=== PATIENT | female | born 1980 | race Hispanic/Latino ===

== ENCOUNTER 2018-06-22 08:55 | Emergency (ER) | payer MEDICAID ==
[2018-06-22 09:12] VITALS: TEMP 98.9
--- NOTE | 2018-06-22 09:57 | ED PDOC ---
Arrival/HPI - General Chief Complaint: Back Pain Historian: Patient - History of Present Illness Narrative History of Present Illness (Text): 06/22/18 09:49 37 y/o female, no significant pmh, nkda, c/o rt. lower back pain x 1 day with no fall or trauma. Aching pain, aggravated by movement, sharp pain, stabbing sensation, no numbness or tingling, no urinary or bowel incontinence or retention, no other medical or psychological complaints. Past Medical History - Provider Review Nursing Documentation Reviewed: Yes - Psychiatric Hx Psychophysiologic Disorder: No Hx Substance Use: No - Surgical History Hx Section: Yes Family/Social History - Physician Review Nursing Documentation Reviewed: Yes Family/Social History: Unknown Family HX Smoking Status: Current Some Days Smoker Hx Alcohol Use: Yes Frequency of alcohol use: Socially Hx Substance Use: No Allergies/Home Meds Allergies/Adverse Reactions: Allergies No Known Allergies Allergy (Verified 06/22/18 09:08) Review of Systems - Review of Systems Constitutional: absent: Fatigue, Fevers Eyes: absent: Vision Changes ENT: absent: Hearing Changes Respiratory: absent: SOB, Cough Cardiovascular: absent: Chest Pain Gastrointestinal: absent: Abdominal Pain, Diarrhea, Nausea, Vomiting Musculoskeletal: Back Pain, Myalgias. absent: Arthralgias, Neck Pain Skin: absent: Rash, Pruritis Neurological: absent: Headache Psychiatric: absent: Anxiety, Depression, Suicidal Ideation Physical Exam Vital Signs Reviewed: Yes Vital Signs Temp Pulse Resp BP Pulse Ox 06/22/18 09:09 98.9 F 125 H 16 119/81 97 Temperature: Afebrile Blood Pressure: Normal Pulse: Regular Respiratory Rate: Normal Appearance: Positive for: Well-Appearing, Non-Toxic Pain Distress: Moderate Mental Status: Positive for: Alert and Oriented X 3 - Systems Exam Head: Present: Atraumatic, Normocephalic Pupils: Present: PERRL Extroacular Muscles: Present: EOMI Conjunctiva: Present: Normal Mouth: Present: Moist Mucous Membranes Neck: Present: Normal Range of Motion Respiratory/Chest: Present: Clear to Auscultation, Good Air Exchange. No: Respiratory Distress, Accessory Muscle Use Cardiovascular: Present: Regular Rate and Rhythm, Normal S1, S2. No: Murmurs Abdomen: No: Tenderness, Distention, Peritoneal Signs Back: Present: Normal Inspection, Paraspinal Tenderness (LS spine: +ttp and spasm noted on the rt. paraspinal region with mild rt. cva tenderness, FROM withot limitation, sensation intact, motor 5/5, no saddling gait, no rash or vesicular lesions. ). No: CVA Tenderness, Midline Tenderness Upper Extremity: Present: Normal Inspection, Normal ROM, NORMAL PULSES, Neuro vascularly Intact, Capillary Refill < 2s. No: Cyanosis, Edema, Deformity Lower Extremity: Present: Normal Inspection, NORMAL PULSES, Normal ROM, Neurovascularly Intact, Capillary Refill < 2 s. No: Edema, Tenderness, Swelling, Deformity Neurological: Present: GCS=15, CN II-XII Intact, Speech Normal Skin: Present: Warm, Dry, Normal Color. No: Rashes Psychiatric: Present: Alert, Oriented x 3, Normal Insight, Normal Concentration Medical Decision Making ED Course and Treatment: 06/22/18 10:01 -labs -ct abd/pelvis -ivf/toradol/pepcid/zofran/valium -observe and reassess 06/22/18 01:30 -Urine hcg is negative -labs show wbc 20.6 with left shift, mg 1.6 (mgsul IV ordered) -UA show +UTI -Blood cultures ordered -CT abdomen and pelvis Obstructing 9 mm mid right ureteral calculus. Trace right perinephric fluid. Mild right hydroureteronephrosis. Nonobstructing left lower pole renal calculus. Additional minor findings as above. -Chest xray ER wet read show no active disease -Pt. is po intolerance, will need IVF and rocephine which I ordered for her. She remains tachycardia at rest. -She will need admission. I explained all labs/radiology results to her, recommend admission and urologist emergent consult. Pt. stated that she has to leave as she has 5 kids at home, will come back to the ER this evening which I don't recommend that as this is delayed the care. 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 Pt stated that she feels better now, eating ice chips, refused me to wait and call specialists for consult. AMA ER The patient refuses to stay in the Emergency Room (ER) to continue the care and wishes to leave the emergency department against my medical advice. Patient was told that staying in the ER is necessary and a full explanation of the reasons why was given, and understood by the patient with alert and oriented x4. The risk of leaving were explained in laymans term and including but not limited to renal abscess, peritonitis, ureter or renal perforation, sepsis, organ or organs failure, sepsis, peritonitis, pain, worsening of condition, permanent disability and from an undiagnosed or untreated condition. The patient accepts these risks, and is in my judgment is competent and capable of understanding the clinical situation and explanation of the risk of leaving. The patient is able to verbally repeated me back the above explained risks and benefits back to me, and verbally expressed understanding. Patient was given the opportunity to ask questions and change mind. The patient was instructed regarding the best care for the present symptoms, and to follow up as soon as possible with the primary care doctor including specialist or return to the emergency department at any time for continuing care. You were recommend to be admitted to the hospital for IV antibiotic and urologist/infectious disease to see you but you refused. You are given keflex/flomax/percocet for pain, please come to the ER or go to the nearest ER for continuity of care. You are given urologist/infectious disease to see as well. - RAD Interpretation Radiology Orders: Chest xray: 06/22/2018 HISTORY: medical clearance COMPARISON: No prior. FINDINGS: LUNGS: No active pulmonary disease. PLEURA: No significant pleural effusion identified, no pneumothorax apparent. CARDIOVASCULAR: No aortic atherosclerotic calcification present. Normal cardiac size. No pulmonary vascular congestion. OSSEOUS STRUCTURES: No significant abnormalities. VISUALIZED UPPER ABDOMEN: Normal. OTHER FINDINGS: None. IMPRESSION: No active disease. CT abdomen and pelvis: Date of service: 06/22/2018 PROCEDURE: CT Abdomen and Pelvis with contrast HISTORY: rt. sided abdominal pain COMPARISON: None. TECHNIQUE: Contrast dose: 150 mL Omnipaque Radiation dose: Total exam DLP = 350 mGy-cm. This CT exam was performed using one or more of the following dose reduction techniques: Automated exposure control, adjustment of the mA and/or kV according to patient size, and/or use of iterative reconstruction technique. FINDINGS: LOWER THORAX: Unremarkable. LIVER: Mild hepatomegaly. Smooth contour. No mass. No biliary dilatation. GALLBLADDER AND BILE DUCTS: Contracted gallbladder filled with calculi. No pericholecystic fluid. PANCREAS: Unremarkable. No gross lesion or ductal dilatation. SPLEEN: Unremarkable. ADRENALS: Unremarkable. No mass. KIDNEYS AND URETERS: Right hydroureteronephrosis. Obstructing mid right ureteral calculus, 9 mm greatest dimension as measured off the coronal images. Trace right perinephric fluid. No right renal calculus. Nonobstructing 5 mm left lower pole calculus. VASCULATURE: Unremarkable. No aortic aneurysm. No aortic atherosclerotic calcification or mural plaque present. BOWEL: Unremarkable. No obstruction. No gross mural thickening. APPENDIX: Not identified. No secondary findings to suggest appendicitis. PERITONEUM: Unremarkable. No free fluid. No free air. LYMPH NODES: Unremarkable. No enlarged lymph nodes. BLADDER: Unremarkable. REPRODUCTIVE: Unremarkable uterus. Bilateral ovarian cysts, 2.2 cm on the right side and 1.4 cm on the left side. Presumed physiologic. BONES: No acute fracture. OTHER FINDINGS: None. IMPRESSION: Obstructing 9 mm mid right ureteral calculus. Trace right perinephric fluid. Mild right hydroureteronephrosis. Nonobstructing left lower pole renal calculus. Additional minor findings as above. [employer]: Radiologist - PA / SLUDGE CONTROL OPERATOR / Resident Statement MD/DO has reviewed & agrees with the documentation as recorded. Disposition/Present on Arrival - Present on Arrival Any Indicators Present on Arrival: No History of DVT/PE: No History of Uncontrolled Diabetes: No Urinary Catheter: No History of Decub. Ulcer: No History Surgical Site Infection Following: None - Disposition Have Diagnosis and Disposition been Completed?: Yes Diagnosis: Leukocytosis, Pyelonephritis, Hypomagnesemia, Hydronephrosis with renal and ureteral calculous obstruction, Noncompliance Disposition: AGAINST MEDICAL ADVICE Disposition Time: 13:32 Patient Problems: Current Active Problems Problem Status Onset Leukocytosis Acute Pyelonephritis Acute Hypomagnesemia Acute Hydronephrosis with renal and ureteral calculous obstruction Acute Noncompliance Acute Condition: STABLE Additional Instructions: You were recommend to be admitted to the hospital for IV antibiotic and urologist/infectious disease to see you but you refused. You are given keflex/flomax/percocet for pain, please come to the ER or go to the nearest ER for continuity of care. You are given urologist/infectious disease to see as well. Prescriptions: Cephalexin [Keflex] 500 mg PO QID #28 capsule oxyCODONE/Acetaminophen [Percocet 5/325 mg Tab] 1 tab PO QID #6 tab Tamsulosin [Flomax] 0.4 mg PO DAILY #7 cap Referrals: PCP,NO [Primary Care Provider] - Follow up with primary Riaz Paniagua MD [Staff Provider] - Follow up with primary Rl Sheehan MD [Staff Provider] - Follow up with primary [facility] [place] - Follow up with primary Forms: [email or web address] (Welsh), WORK NOTE
[2018-06-22] MEDS ORDERED: Sodium Chloride 0.9% 1,000 ML IV STA ×2 (09:58→11:45)
[2018-06-22 10:51] LABS: URINE BILIRUBIN NEGATIVE (NEGATIVE); URINE BLOOD MODERATE (NEGATIVE); URINE GLUCOSE (UA) NEGATIVE (NEGATIVE); URINE LEUKOCYTE ESTERASE SMALL Leu/uL (NEGATIVE); URINE PROTEIN 100 mg/dL (<30 mg/dL); URINE UROBILINOGEN 0.2 E.U./dL (<1 E.U./dL)
[2018-06-22 10:52] LABS: URINE APPEARANCE CLOUDY (CLEAR); URINE COLOR LIGHT YELLOW (YELLOW)
[2018-06-22 10:54] LABS: ALB/GLOB RATIO 1.1 (1.1-1.8); ALBUMIN 4.3 g/dL (3.0-4.8); ALT/SGPT 16 U/L (7-56); AST/SGOT 23 U/L (14-36); BLOOD UREA NITROGEN 9 mg/dL (7-21); CALCIUM 9.3 mg/dL (8.4-10.5); GFR NON-AFRICAN AMERICAN > 60; LIPASE 100 U/L (23-300)
[2018-06-22 10:56] LABS: BASO # 0.02 K/mm3 (0.0-2.0); BASO % 0.1 % (0.0-3.0); EOS # 0.1 (0.0-0.7); EOS % 0.3 % (1.5-5.0); HEMOGLOBIN 10.5 g/dL (12.0-16.0); LYMPH # 1.6 (1.2-3.4); LYMPH % 7.8 % (22.0-35.0); MEAN CELL VOLUME 74.7 fl (80.0-105.0); MEAN CORPUSCULAR HEMOGLOBIN 22.3 pg (25.0-35.0); MEAN CORPUSCULAR HGB CONC 29.9 g/dl (31.0-37.0); MEAN PLATELET VOLUME 8.3 fl (7.0-11.0); MONO # 1.1 (0.1-0.6); MONO % 5.2 % (1.0-6.0); RBC 4.7 10^6/uL (3.5-6.1); RED CELL DISTRIBUTION WIDTH 14.9 % (11.5-14.5); WHITE BLOOD COUNT 20.6 10^3/uL (4.5-11.0)
[2018-06-22 11:10] LABS: URINE BACTERIA LARGE /hpf; URINE RBC TNTC /hpf (0-2); URINE WBC TNTC /hpf (0-6)
[2018-06-22 11:12] VITALS: RESP 18; O2SAT 100
[2018-06-22] MEDS ORDERED: cefTRIAXone 1 gm 1 GM/100 ML BAG IVPB STA (11:48)
[2018-06-22] MEDS ORDERED: Magnesium Sulfate 2 gm/50 ml 2 GM/50 ML BAG IVPB ONE (11:48)
--- NOTE | 2018-06-22 12:53 | CT ---
Date of service: 06/22/2018 PROCEDURE: CT Abdomen and Pelvis with contrast HISTORY: rt. sided abdominal pain COMPARISON: None. TECHNIQUE: Contrast dose: 150 mL Omnipaque Radiation dose: Total exam DLP = 350 mGy-cm. This CT exam was performed using one or more of the following dose reduction techniques: Automated exposure control, adjustment of the mA and/or kV according to patient size, and/or use of iterative reconstruction technique. FINDINGS: LOWER THORAX: Unremarkable. LIVER: Mild hepatomegaly. Smooth contour. No mass. No biliary dilatation. GALLBLADDER AND BILE DUCTS: Contracted gallbladder filled with calculi. No pericholecystic fluid. PANCREAS: Unremarkable. No gross lesion or ductal dilatation. SPLEEN: Unremarkable. ADRENALS: Unremarkable. No mass. KIDNEYS AND URETERS: Right hydroureteronephrosis. Obstructing mid right ureteral calculus, 9 mm greatest dimension as measured off the coronal images. Trace right perinephric fluid. No right renal calculus. Nonobstructing 5 mm left lower pole calculus. VASCULATURE: Unremarkable. No aortic aneurysm. No aortic atherosclerotic calcification or mural plaque present. BOWEL: Unremarkable. No obstruction. No gross mural thickening. APPENDIX: Not identified. No secondary findings to suggest appendicitis. PERITONEUM: Unremarkable. No free fluid. No free air. LYMPH NODES: Unremarkable. No enlarged lymph nodes. BLADDER: Unremarkable. REPRODUCTIVE: Unremarkable uterus. Bilateral ovarian cysts, 2.2 cm on the right side and 1.4 cm on the left side. Presumed physiologic. BONES: No acute fracture. OTHER FINDINGS: None. IMPRESSION: Obstructing 9 mm mid right ureteral calculus. Trace right perinephric fluid. Mild right hydroureteronephrosis. Nonobstructing left lower pole renal calculus. Additional minor findings as above.
--- NOTE | 2018-06-22 13:27 | RAD ---
Date of service: 06/22/2018 HISTORY: medical clearance COMPARISON: No prior. FINDINGS: LUNGS: No active pulmonary disease. PLEURA: No significant pleural effusion identified, no pneumothorax apparent. CARDIOVASCULAR: No aortic atherosclerotic calcification present. Normal cardiac size. No pulmonary vascular congestion. OSSEOUS STRUCTURES: No significant abnormalities. VISUALIZED UPPER ABDOMEN: Normal. OTHER FINDINGS: None. IMPRESSION: No active disease.
[2018-06-22 14:21] VITALS: BP 103/62; PULSE 88
--- NOTE | 2018-06-22 17:51 | CARD ---
APPROVED REPORT Date of service: 06/22/2018 EKG Measurement Heart [id number] <Conclusion> Normal sinus rhythm Normal ECG
== END 2018-06-22 14:33 | disposition left against medical advice (07) ==
LOC: ED 08:55 → MERGE 08:55 → ED 14:33
DX: N13.2 Hydronephrosis with renal and ureteral calculous obstruction (principal); E83.42 Hypomagnesemia; D72.829 Elevated white blood cell count, unspecified; N12 Tubulo-interstitial nephritis, not specified as acute or chronic
CPT/HCPCS: 71045; 74177; 80053; 81001; 81025; 83690; 83735; 85025; 87086; 93005; 96374; 96375; 99284; J0696; J1885; J2405; J7030; Q9967

== ENCOUNTER 2018-08-22 08:14 | Inpatient (IN) | payer MEDICAID ==
[2018-08-22 08:14] VITALS: BMI 37.2
[2018-08-22] MEDS ORDERED: Sodium Chloride 0.9% 1,000 ML IV STA (08:49)
--- NOTE | 2018-08-22 08:55 | ED PDOC ---
Arrival/HPI - General Chief Complaint: GI Problem Time Seen by Provider: 08/22/18 08:18 - History of Present Illness Narrative History of Present Illness (Text): 08/22/18 08:53 A 37 year old female, whose past medical history includes gallstones and kidney stones, presents to the ED complaining of constant, right side flank pain radiating to RLQ of abdomen since yesterday. Patient reports associated nausea and body aches since yesterday, as well as 2 episodes of vomiting this morning. Patient notes pain is unchanged with movement. Patient denies any fevers, chills, headache, dizziness, chest pain, shortness of breath, dyspnea on exertion, cough, diarrhea, neck pain, dysuria, urinary/bowel changes, or any other complaints. Time/Duration: 24 hours (Yesterday) Symptom Onset: Gradual Symptom Course: Unchanged Activities at Onset: Light Context: Home Past Medical History - Provider Review Nursing Documentation Reviewed: Yes - Cardiac Hx Cardiac Disorders: No - Pulmonary Hx Respiratory Disorders: No - Neurological Hx Neurological Disorder: No - HEENT Hx HEENT Disorder: No - Renal Hx Kidney Stones: Yes - Endocrine/Metabolic Hx Endocrine Disorders: No - Hematological/Oncological Hx Blood Disorders: No - Integumentary Hx Dermatological Disorder: No - Musculoskeletal/Rheumatological Hx Musculoskeletal Disorders: No - Gastrointestinal Hx Gall Bladder Disease: Yes (gallstones) - Genitourinary/Gynecological Hx Genitourinary Disorders: No - Psychiatric Hx Psychophysiologic Disorder: No Hx Substance Use: No - Surgical History Hx Section: Yes - Anesthesia Hx Anesthesia: Yes Hx Anesthesia Reactions: No Family/Social History - Physician Review Nursing Documentation Reviewed: Yes Family/Social History: Unknown Family HX Smoking Status: Light Smoker < 10 Cigarettes Daily Hx Alcohol Use: No Hx Substance Use: No Allergies/Home Meds Allergies/Adverse Reactions: Allergies No Known Allergies Allergy (Verified 08/22/18 08:29) Review of Systems - Physician Review All systems were reviewed & negative as marked: Yes - Review of Systems Constitutional: absent: Fevers Eyes: absent: Vision Changes ENT: absent: Hearing Changes Respiratory: absent: SOB, Cough Cardiovascular: absent: Chest Pain Gastrointestinal: Abdominal Pain, Nausea, Vomiting. absent: Stool Changes Genitourinary Female: Other (Right side flank pain) Musculoskeletal: absent: Neck Pain Skin: absent: Rash Neurological: absent: Headache Endocrine: absent: Diaphoresis Hemo/Lymphatic: absent: Adenopathy Psychiatric: absent: Anxiety, Depression Physical Exam Vital Signs Reviewed: Yes Vital Signs Temp Pulse Resp BP Pulse Ox 08/22/18 08:26 99.1 F 92 H 18 120/84 96 Temperature: Afebrile Blood Pressure: Normal Pulse: Regular Respiratory Rate: Normal Appearance: Positive for: Well-Appearing, Non-Toxic, Comfortable Pain Distress: None Mental Status: Positive for: Alert and Oriented X 3 - Systems Exam Head: Present: Atraumatic, Normocephalic Pupils: Present: PERRL Extroacular Muscles: Present: EOMI Conjunctiva: Present: Normal Respiratory/Chest: Present: Clear to Auscultation, Good Air Exchange. No: Respiratory Distress, Accessory Muscle Use Cardiovascular: Present: Regular Rate and Rhythm, Normal S1, S2. No: Murmurs Abdomen: Present: Normal Bowel Sounds. No: Tenderness, Distention Back: Present: Normal Inspection, CVA Tenderness (Right side) Upper Extremity: Present: Normal Inspection Lower Extremity: Present: Normal Inspection Neurological: Present: GCS=15, CN II-XII Intact, Speech Normal, Motor Func Grossly Intact, Normal Sensory Function Skin: Present: Warm, Dry, Normal Color. No: Rashes Psychiatric: Present: Alert, Oriented x 3, Normal Insight, Normal Concentration Medical Decision Making ED Course and Treatment: 08/22/18 09:37 Impression: A 37 year old female who presents to the ED for right side flank pain. Differential Diagnosis included but are not limited to: Kidney Stone vs Pyelonphritis Plan: -- CT Abd/pelvis -- Labs -- IV Fluids -- Urine Culture -- Urine Test -- Urinalysis -- Reassess and disposition Prior Visits: Notes and results from previous visits were reviewed. Progress Notes: 08/22/18 11:23 Case was discussed in detail with Dr. Paniagua, Urology who recommends IV antibiotics and keep the NPO for stent placement. Currently the patient is stable and not ill appearing. Does not appear septic. Treated with Rocephin IV. Patient comfortable with no pain after medications given. Case was discussed with Dr. Escalante who will accept the patient to her service. - RAD Interpretation Radiology Orders: 08/22/18 08:49 ABD & PELVIS W/O PO OR IV CONT [CT] Stat - Medication Orders Current Medication Orders: Sodium Chloride (Sodium Chloride 0.9%) 1,000 mls @ 100 mls/hr IV .Q10H STA Stop: 08/22/18 18:48 Discontinued Medications Ketorolac Tromethamine (Toradol) 30 mg IVP STAT STA Stop: 08/22/18 08:50 Ondansetron HCl (Zofran Inj) 4 mg IVP STAT STA Stop: 08/22/18 08:50 - Scribe Statement The provider has reviewed the documentation as recorded by the Jocelynn Winslow Provider Scribe Attestation: All medical record entries made by the Jocelynn were at my direction and personally dictated by me. I have reviewed the chart and agree that the record accurately reflects my personal performance of the history, physical exam, medical decision making, and the department course for this patient. I have also personally directed, reviewed, and agree with the discharge instructions and disposition. Disposition/Present on Arrival - Present on Arrival Any Indicators Present on Arrival: No History of DVT/PE: No History of Uncontrolled Diabetes: No Urinary Catheter: No History of Decub. Ulcer: No History Surgical Site Infection Following: None - Disposition Have Diagnosis and Disposition been Completed?: Yes Diagnosis: Kidney stone, Pyelonephritis Disposition: HOSPITALIZED Disposition Time: 11:52 Patient Plan: Admission Condition: GUARDED
[2018-08-22 09:28] LABS: URINE BILIRUBIN NEGATIVE (NEGATIVE); URINE BLOOD SMALL (NEGATIVE); URINE GLUCOSE (UA) NEGATIVE (NEGATIVE); URINE LEUKOCYTE ESTERASE LARGE Leu/uL (NEGATIVE); URINE PROTEIN 30 mg/dL (<30 mg/dL); URINE UROBILINOGEN 0.2 E.U./dL (<1 E.U./dL)
[2018-08-22 09:29] LABS: BASO # 0.01 {null, K/mm3} (0.0-2.0); BASO % 0.1 % (0.0-3.0); EOS % 0.1 % (1.5-5.0); HEMOGLOBIN 9.6 g/dL (12.0-16.0); LYMPH # 1.2 (1.2-3.4); LYMPH % 6.7 % (22.0-35.0); MEAN CELL VOLUME 74.2 fl (80.0-105.0); MEAN CORPUSCULAR HEMOGLOBIN 22.7 pg (25.0-35.0); MEAN CORPUSCULAR HGB CONC 30.6 g/dl (31.0-37.0); MEAN PLATELET VOLUME 8.3 fl (7.0-11.0); MONO # 1.2 (0.1-0.6); MONO % 6.8 % (1.0-6.0); RBC 4.23 {null, 10^6/uL} (3.5-6.1); RED CELL DISTRIBUTION WIDTH 16.7 % (11.5-14.5); WHITE BLOOD COUNT 17.2 {null, 10^3/uL} (4.5-11.0)
[2018-08-22 09:33] LABS: URINE APPEARANCE SLIGHT-CLOUDY (CLEAR); URINE COLOR LIGHT YELLOW (YELLOW)
[2018-08-22 09:38] LABS: ALT/SGPT 9 U/L (7-56); AST/SGOT 22 U/L (14-36); BLOOD UREA NITROGEN 12 mg/dL (7-21); GFR NON-AFRICAN AMERICAN > 60; URINE WBC TNTC /hpf (0-6)
[2018-08-22 09:41] LABS: URINE BACTERIA MANY /hpf
[2018-08-22] MEDS ORDERED: cefTRIAXone 1 gm 1 GM/100 ML BAG IVPB STA (09:45)
[2018-08-22 10:09] LABS: VENOUS BLOOD GAS BASE EXCESS -0.1 mmol/L (0.0-2.0); VENOUS BLOOD GAS PO2 57 mm/Hg (30-55); VENOUS BLOOD PH 7.43 (7.32-7.43)
--- NOTE | 2018-08-22 10:46 | CT ---
Date of service: 08/22/2018 PROCEDURE: CT Abdomen and Pelvis without intravenous contrast HISTORY: right flank pain r/o kidney stone h/o ks COMPARISON: CT scan of the abdomen pelvis dated 06/22/2018. TECHNIQUE: Contiguous images were obtained from the domes of the diaphragms to the upper thighs without the administration of intravenous contrast. Oral contrast was not administered. Radiation dose: Total exam DLP = 1093.77 mGy-cm. This CT exam was performed using one or more of the following dose reduction techniques: Automated exposure control, adjustment of the mA and/or kV according to patient size, and/or use of iterative reconstruction technique. FINDINGS: LOWER THORAX: Unremarkable. LIVER: Unremarkable. No gross lesion or ductal dilatation. GALLBLADDER AND BILE DUCTS: Calcified cholelithiasis without gallbladder wall thickening or pericholecystic fluid. PANCREAS: Unremarkable. No gross lesion or ductal dilatation. SPLEEN: Unremarkable. ADRENALS: Unremarkable. No mass. KIDNEYS AND URETERS: 6 x 6 x 6 distal right ureteral calculus causing moderate right hydroureteronephrosis with perinephric stranding. Nonobstructive 5 mm left lower pole calculus. No solid mass. VASCULATURE: Unremarkable. No aortic aneurysm. No aortic atherosclerotic calcification or mural plaque present. BOWEL: Unremarkable. No obstruction. No gross mural thickening. APPENDIX: Unremarkable. Normal appendix. PERITONEUM: Unremarkable. No free fluid. No free air. LYMPH NODES: Unremarkable. No enlarged lymph nodes. BLADDER: Unremarkable. REPRODUCTIVE: Unremarkable. BONES: No acute fracture. OTHER FINDINGS: None. IMPRESSION: Obstructive 6 x 6 x 6 mm distal right ureteral calculus causing moderate right hydroureteronephrosis. Nonobstructive 5 mm left lower pole calculus.
--- NOTE | 2018-08-22 13:20 | CP.PCM.HP ---
<ShirleyJero - Last Filed: 08/22/18 13:26> History of Present Illness - History of Present Illness History of Present Illness: Jero Watson, PGY-1, Internal Medicine History and Physical for Dr. Burnett 37 year old female with past medical history of nephrolithiasis and tobacco abuse presented for sharp right lower quadrant abdominal pain radiating to the back. Patient reports no excerbating factors as she was watching TV when symptoms started. Remitting factors include toradol, IV fluids, and antibiotics upon presentation to the emergency department. She reports one episode of NBNB vomiting yesterday with nausea. This morning, she reports resolution of her pain and no nausea at this time. She had this pain 2 months ago, was evaluated, and found to have nephrolithiasis at that time but left against medical advice. She did not have this pain again until now. She denies any other symptoms including fever, chills, chest pain, heart palpitations, shortness of breath, constipati on, diarrhea, dysuria, hematuria. 12-point ROS was unremarkable except for what was mentioned above. PMH: as stated above PSH: 2 C sections last one was 7 months ago FMHx: Mother: unspecified kidney disease SHx: smoked 3 cigarettes a day for 7 months, denies alcohol or recreational drug use Allergies: NKDA PMD: [facility] Home medications: none Present on Admission - Present on Admission Any Indicators Present on Admission: No Review of Systems - Review of Systems Review of Systems: except as mentioned in HPI Past Patient History - Past Social History Smoking Status: Smoker Currrent Status Unknown - CARDIAC Hx Cardiac Disorders: No - PULMONARY Hx Respiratory Disorders: No - NEUROLOGICAL Hx Neurological Disorder: No - HEENT Hx HEENT Problems: No - RENAL Hx Kidney Stones: Yes - ENDOCRINE/METABOLIC Hx Endocrine Disorders: No - HEMATOLOGICAL/ONCOLOGICAL Hx Blood Disorders: No - INTEGUMENTARY Hx Dermatological Problems: No - MUSCULOSKELETAL/RHEUMATOLOGICAL Hx Falls: No - GASTROINTESTINAL Hx Gall Bladder Disease: Yes (gallstones) - GENITOURINARY/GYNECOLOGICAL Hx Genitourinary Disorders: No - PSYCHIATRIC Hx Psychophysiologic Disorder: No Hx Substance Use: No - SURGICAL HISTORY Hx Surgeries: Yes () - ANESTHESIA Hx Anesthesia: Yes Hx Anesthesia Reactions: No Meds Allergies/Adverse Reactions: Allergies Allergy/AdvReac Type Severity Reaction Status Date / Time No Known Allergies Allergy Verified 08/22/18 08:29 Physical Exam - Constitutional Appears: Well, Non-toxic, No Acute Distress - Head Exam Head Exam: ATRAUMATIC, NORMAL INSPECTION, NORMOCEPHALIC - Eye Exam Eye Exam: EOMI, PERRL - ENT Exam ENT Exam: Mucous Membranes Moist - Respiratory Exam Respiratory Exam: Clear to Auscultation Bilateral, NORMAL BREATHING PATTERN - Cardiovascular Exam Cardiovascular Exam: REGULAR RHYTHM, RRR, +S1, +S2. absent: Clicks, Gallop, Rubs - GI/Abdominal Exam GI & Abdominal Exam: Normal Bowel Sounds, Soft. absent: Distended, Firm, Guarding, Tenderness - Extremities Exam Extremities exam: Positive for: full ROM, normal inspection, pedal pulses present. Negative for: tenderness - Back Exam Back exam: absent: CVA tenderness (L), CVA tenderness (R), muscle spasm - Neurological Exam Neurological exam: Alert, CN II-XII Intact, Oriented x3 - Skin Skin Exam: Dry, Intact, Normal Color Results - Vital Signs Recent Vital Signs: Last Vital Signs Temp 98.6 F 08/22/18 12:18 Pulse 60 08/22/18 12:18 Resp 18 08/22/18 12:42 BP 96/60 L 08/22/18 12:18 Pulse Ox 98 08/22/18 12:18 - Labs Result Diagrams: 08/22/18 09:15 08/22/18 09:15 Labs: Laboratory Results - last 24 hr 08/22/18 08/22/18 08/22/18 09:15 09:15 09:15 WBC 17.2 H RBC 4.23 Hgb 9.6 L Hct 31.4 L MCV 74.2 L MCH 22.7 L MCHC 30.6 L RDW 16.7 H Plt Count 413 MPV 8.3 Neut % (Auto) 86.3 H Lymph % (Auto) 6.7 L [place] % (Auto) 6.8 H Eos % (Auto) 0.1 L Baso % (Auto) 0.1 Lymph # (Auto) 1.2 [place] # (Auto) 1.2 H Eos # (Auto) 0.0 Baso # (Auto) 0.01 Absolute Neuts (auto) 14.83 H pO2 VBG pH VBG pCO2 VBG HCO3 VBG Total CO2 VBG O2 Sat (Calc) VBG Base Excess VBG Potassium Glucose Lactate FiO2 Sodium 141 Potassium 4.2 Chloride 104 Carbon Dioxide 26 Anion Gap 15 BUN 12 Creatinine 1.0 Est GFR ( Amer) > 60 Est GFR (Non-Af Amer) > 60 Random Glucose 116 H Calcium 9.0 Total Bilirubin 0.8 AST 22 ALT 9 Alkaline Phosphatase 100 Total Protein 7.8 Albumin 4.0 Globulin 3.8 Albumin/Globulin Ratio 1.0 L Venous Blood Potassium Urine Color Light yellow Urine Appearance Slight-cloudy Urine pH 7.0 Ur Specific [place] 1.015 Urine Protein 30 H Urine Glucose (UA) Negative Urine Ketones Negative Urine Blood Small H Urine Nitrate Negative Urine Bilirubin Negative Urine Urobilinogen 0.2 Ur Leukocyte Esterase Large H Urine RBC 10 - 15 H Urine WBC Tntc H Ur Epithelial Cells 4 - 5 Urine Bacteria Many 08/22/18 10:00 WBC RBC Hgb Hct MCV MCH MCHC RDW Plt Count MPV Neut % (Auto) Lymph % (Auto) [place] % (Auto) Eos % (Auto) Baso % (Auto) Lymph # (Auto) [place] # (Auto) Eos # (Auto) Baso # (Auto) Absolute Neuts (auto) pO2 57 H VBG pH 7.43 VBG pCO2 36.0 L VBG HCO3 23.9 VBG Total CO2 25.0 VBG O2 Sat (Calc) 94.8 H VBG Base Excess -0.1 L VBG Potassium 3.8 Glucose 111 H Lactate 0.8 FiO2 21.0 Sodium 138.0 Potassium Chloride 107.0 Carbon Dioxide Anion Gap BUN Creatinine Est GFR ( Amer) Est GFR (Non-Af Amer) Random Glucose Calcium Total Bilirubin AST ALT Alkaline Phosphatase Total Protein Albumin Globulin Albumin/Globulin Ratio Venous Blood Potassium 3.8 Urine Color Urine Appearance Urine pH Ur Specific [place] Urine Protein Urine Glucose (UA) Urine Ketones Urine Blood Urine Nitrate Urine Bilirubin Urine Urobilinogen Ur Leukocyte Esterase Urine RBC Urine WBC Ur Epithelial Cells Urine Bacteria Assessment & Plan - Assessment and Plan (Free Text) Assessment: 37 year old female with past medical history of nephrolithiasis and tobacco abuse presented for sharp right lower quadrant abdominal pain radiating to the back. Plan: Obstructing nephrolithasis -Abdominal/Pelvis CT without contrast 08/22: obstructive [id number] distal right ureteral calculus causing moderate right hydroureteronephrosis. Nonobstructive 5 mm left lower pole calculus -Leukocytosis likely reactive -Afebrile -Vitals stable except for blood pressure which is in the 90s/60s -Started NS at 100 cc/hr for adequate hydration to assist in passing stone -Started Toradol 15 mg BID PRN for pain -Started ceftriaxone 1 gm daily to cover for possible pyelonephritis -Dr. Paniagua, Urology, consulted. Recommendations appreciated. Microcytic Anemia -Patient currently has hemoglobin in 9s with baseline in 10s -Will obtain iron, TIBC, ferritin to evaluate for iron deficiency anemia Tobacco abuse disorder -Patient counseled on dangers of continued tobacco use. Smoking cessation strongly advised. GI prophylaxis: protonix DVT prophylaxis: SCD Patient plan discussed with Dr. Burnett - Date & Time Date: 08/22/18 Time: 13:23 <Yolanda Burnett R - Last Filed: 08/22/18 15:08> Results - Vital Signs Recent Vital Signs: Last Vital Signs Temp 98.6 F 08/22/18 12:18 Pulse 60 08/22/18 12:18 Resp 18 08/22/18 12:42 BP 96/60 L 08/22/18 12:18 Pulse Ox 98 08/22/18 12:18 - Labs Result Diagrams: 08/22/18 09:15 08/22/18 09:15 Labs: Laboratory Results - last 24 hr 08/22/18 08/22/18 08/22/18 09:15 09:15 09:15 WBC 17.2 H RBC 4.23 Hgb 9.6 L Hct 31.4 L MCV 74.2 L MCH 22.7 L MCHC 30.6 L RDW 16.7 H Plt Count 413 MPV 8.3 Neut % (Auto) 86.3 H Lymph % (Auto) 6.7 L [place] % (Auto) 6.8 H Eos % (Auto) 0.1 L Baso % (Auto) 0.1 Lymph # (Auto) 1.2 [place] # (Auto) 1.2 H Eos # (Auto) 0.0 Baso # (Auto) 0.01 Absolute Neuts (auto) 14.83 H pO2 VBG pH VBG pCO2 VBG HCO3 VBG Total CO2 VBG O2 Sat (Calc) VBG Base Excess VBG Potassium Glucose Lactate FiO2 Sodium 141 Potassium 4.2 Chloride 104 Carbon Dioxide 26 Anion Gap 15 BUN 12 Creatinine 1.0 Est GFR ( Amer) > 60 Est GFR (Non-Af Amer) > 60 Random Glucose 116 H Calcium 9.0 Iron TIBC % Saturation Total Bilirubin 0.8 AST 22 ALT 9 Alkaline Phosphatase 100 Total Protein 7.8 Albumin 4.0 Globulin 3.8 Albumin/Globulin Ratio 1.0 L Venous Blood Potassium Urine Color Light yellow Urine Appearance Slight-cloudy Urine pH 7.0 Ur Specific [place] 1.015 Urine Protein 30 H Urine Glucose (UA) Negative Urine Ketones Negative Urine Blood Small H Urine Nitrate Negative Urine Bilirubin Negative Urine Urobilinogen 0.2 Ur Leukocyte Esterase Large H Urine RBC 10 - 15 H Urine WBC Tntc H Ur Epithelial Cells 4 - 5 Urine Bacteria Many 08/22/18 08/22/18 10:00 13:00 WBC RBC Hgb Hct MCV MCH MCHC RDW Plt Count MPV Neut % (Auto) Lymph % (Auto) [place] % (Auto) Eos % (Auto) Baso % (Auto) Lymph # (Auto) [place] # (Auto) Eos # (Auto) Baso # (Auto) Absolute Neuts (auto) pO2 57 H VBG pH 7.43 VBG pCO2 36.0 L VBG HCO3 23.9 VBG Total CO2 25.0 VBG O2 Sat (Calc) 94.8 H VBG Base Excess -0.1 L VBG Potassium 3.8 Glucose 111 H Lactate 0.8 FiO2 21.0 Sodium 138.0 Potassium Chloride 107.0 Carbon Dioxide Anion Gap BUN Creatinine Est GFR ( Amer) Est GFR (Non-Af Amer) Random Glucose Calcium Iron 11 L TIBC 419 % Saturation 3 L Total Bilirubin AST ALT Alkaline Phosphatase Total Protein Albumin Globulin Albumin/Globulin Ratio Venous Blood Potassium 3.8 Urine Color Urine Appearance Urine pH Ur Specific [place] Urine Protein Urine Glucose (UA) Urine Ketones Urine Blood Urine Nitrate Urine Bilirubin Urine Urobilinogen Ur Leukocyte Esterase Urine RBC Urine WBC Ur Epithelial Cells Urine Bacteria Attending/Attestation - Attestation I have personally seen and examined this patient.: Yes I have fully participated in the care of the patient.: Yes I have reviewed all pertinent clinical information: Yes Notes (Text): Patient seen and examined by me with resident at approximately at 12:10PM on 08/22/18 in the emergency room. Case including HPI, physical exam, and assessment and plan discussed with resident. Agree with above with following addition s/corrections. Patient is a 37-year-old female with past medical history significant for dialysis and tobacco abuse presented to the emergency room for right sided back/abdominal pain. Patient states the pain started around 5 or 6 PM last night while she was watching TV. The pain was sharp and constant. Patient tried Tylenol with no relief. Patient denies any radiation of the pain. She states that she had one episode of vomiting at 3 AM this morning. She denies any associated fevers or chills. No burning or pain with urination. No difficulty urinating. No gross hematuria. She states that she was seen in the hospital and May 2018 for the same reason. However, patient states that at that time she decided not to stay in the hospital for workup and treatment. She denies any chest pain or shortness of breath. No headaches or dizziness. No lightheadedness. No current nausea, vomiting, abdominal pain. No diarrhea or constipation. 12 point review of systems reviewed by me. Please see above HPI. All other systems are negative. Family history: Mother is alive and has kidney disease. Father is alive and healthy. Physical exam: General: Awake and alert lying in bed in no acute distress HEENT: Normocephalic, atraumatic. Extraocular muscles intact. Pupils equal and reactive, no scleral icterus. Oropharynx pink and moist. No pharyngeal erythema or exudate appreciated. Neck supple. Hearing grossly intact. Ears and nose externally unremarkable. Cardiovascular: Regular rhythm. Normal S1 and S2. No murmurs, rubs, or gallops appreciated Pulmonary: Normal respiratory effort. No rhonchi, rales, or wheezing appreciated Gastrointestinal: Soft. Nondistended. Nontender. Positive bowel sounds all 4 quadrants. No guarding. Musculoskeletal: Moves all extremities. No calf tenderness. No edema appreciated. No CVA tenderness (resolved after receiving Toradol in the emergency room). Central nervous system: AAO x3. CN 2-12 grossly intact. No focal deficits appreciated. Dermatologic: Skin warm and dry. Assessment and plan: Patient is a 37-year-old female with past medical history significant for dialysis and tobacco abuse presented to the emergency room for right sided back/abdominal pain. 1. Obstructing right ureteral calculus. Moderate right hydroureteronephrosis. Right CVA tenderness. CT abdomen and pelvis per radiologist showed obstructive 6 x 6 x 6 mm distal right ureteral calculus causing moderate right hydroureteronephrosis; nonobstructive 5 mm left lower pole calculus. Urology recommendations appreciated. Placed on IV fluids. Started on Rocephin. Toradol for pain management. Patient NPO for possible stent placement. 2. UTI. Started on Rocephin. Urine culture pending. 3. Tobacco abuse. Counseled on cessation. Case was discussed in detail with the patient regarding her diagnosis, test results, and treatment plan. All questions answered.
[2018-08-22 14:04] LABS: IRON 11 ug/dL (45-180)
[2018-08-22 14:13] LABS: % IRON SATURATION 3 % (20-55); TOTAL IRON BINDING CAPACITY 419 ug/dL (265-497)
[2018-08-22] MEDS ORDERED: Iohexol 240 (50 ml) ONE (15:15)
[2018-08-22] MEDS ORDERED: Midazolam 2 MG/2 ML VIAL ONE (15:27)
[2018-08-22] MEDS ORDERED: Propofol 10 mg/ml Inj (20 ML) ONE (15:27)
[2018-08-22] MEDS ORDERED: Lactated Ringer's 1,000 ML IV SCH (16:00)
[2018-08-22 16:23] LABS: FERRITIN 8.2 ng/mL
[2018-08-22 16:54] LABS: FOLATE 9.8 ng/mL
[2018-08-22 22:15] VITALS: O2SAT 97
--- NOTE | 2018-08-23 03:03 | OP ---
PROCEDURE DATE: 08/22/2018 PREOPERATIVE DIAGNOSES: Obstructing right ureteral stone, renal colic, and urinary infection. POSTOPERATIVE DIAGNOSES: Obstructing right ureteral stone, renal colic, and urinary infection. PROCEDURES: Cystoscopy, right retrograde pyelogram, and insertion of a right ureteral stent. ATTENDING SURGEON: Riaz Paniagua MD ANESTHESIA: General. SPECIMENS: None. DRAINS: A 6 x 24 right ureteral stent. COMPLICATIONS: None. OPERATIVE FINDINGS: After informed consent was obtained, the patient was taken to the operating room and placed on the operating room table. Anesthesia was administered. The patient was placed in a dorsal lithotomy position and prepped and draped in the usual sterile fashion. The patient received intravenous antibiotics in the emergency room prior to coming to the operating room. A 22-Congolese cystoscope was passed in the patient's bladder, and a full survey inspection was performed. There were no stones, papillary tumors, or foreign bodies of the bladder noted. There was evidence of throughout the bladder. Both ureteral orifices were visualized and appeared within normal limits. At this point, a 5-Congolese Pollack catheter was introduced through the cystoscope and guided into the right ureteral orifice. When inside the orifice, a retrograde pyelogram was performed by instilling contrast through the Pollack catheter into the ureter during real-time fluoroscopy. There was a large filling defect consistent with obstructing calculus noted in the upper portion of the lower ureter. Above this defect, there was dilatation of the ureter with overt hydronephrosis. Difficult to get contrast pass the obstructing stone. At this point, a sensor wire was passed. The wire was passed beyond the obstruction without difficulty and advanced up to the ureter. The open-ended ureteral catheter was then advanced over the wire and passed the obstructing stone up to the region of the kidney. The wire was then removed and further contrast instilled into the system, which revealed a moderate hydronephrosis. At this point, the wire was then re-passed. The open-ended catheter was removed, and a 6 x 24 stent was obtained. The stent was passed over the wire through the scope and into the right ureter. The stent was advanced proximally under direct fluoroscopic guidance until it was in the appropriate position. When the stent was in proper position, the guidewire was removed. A coil was seen in the renal pelvis on fluoroscopy. A coil was seen in the bladder on cystoscopy. There was drainage of a large amount of purulent fluid noted through the stent. At this point, the procedure was completed. The bladder was drained and the cystoscope was removed. The patient tolerated the procedure well. She was taken to the recovery room in awake and stable condition. Riaz Paniagua MD
[2018-08-23] MEDS ORDERED: Sodium Chloride 0.9% 1,000 ML IV SCH (07:15)
[2018-08-23 07:29] VITALS: BP 100/66; PULSE 85; RESP 18; TEMP 97.8
[2018-08-23 07:49] LABS: BASO # 0.01 {null, K/mm3} (0.0-2.0); BASO % 0.1 % (0.0-3.0); EOS # 0.3 (0.0-0.7); EOS % 2.8 % (1.5-5.0); HEMOGLOBIN 8.3 g/dL (12.0-16.0); LYMPH # 1.7 (1.2-3.4); LYMPH % 15.7 % (22.0-35.0); MEAN CELL VOLUME 75.3 fl (80.0-105.0); MEAN CORPUSCULAR HEMOGLOBIN 22.5 pg (25.0-35.0); MEAN CORPUSCULAR HGB CONC 29.9 g/dl (31.0-37.0); MEAN PLATELET VOLUME 8.5 fl (7.0-11.0); MONO # 0.7 (0.1-0.6); MONO % 6.5 % (1.0-6.0); RBC 3.69 {null, 10^6/uL} (3.5-6.1); RED CELL DISTRIBUTION WIDTH 17.1 % (11.5-14.5); WHITE BLOOD COUNT 10.8 {null, 10^3/uL} (4.5-11.0)
[2018-08-23 08:06] LABS: ALB/GLOB RATIO 0.9 (1.1-1.8); ALBUMIN 3.3 g/dL (3.0-4.8); ALT/SGPT 11 U/L (7-56); AST/SGOT 17 U/L (14-36); BLOOD UREA NITROGEN 12 mg/dL (7-21); CALCIUM 7.9 mg/dL (8.4-10.5); GFR NON-AFRICAN AMERICAN > 60
[2018-08-23] MEDS ORDERED: cefTRIAXone 1 gm 1 GM/100 ML BAG IVPB SCH (10:00)
--- NOTE | 2018-08-23 12:17 | RAD ---
Date of service: 08/22/2018 PROCEDURE: Fluoroscopy up to 1 hr HISTORY: RIGHT STENT INSERTION COMPARISON: TECHNIQUE: Four views were obtained FINDINGS: There is placement of a right-sided stent IMPRESSION: As above
--- NOTE | 2018-08-23 13:01 | CP.PCM.DIS ---
<MalloriecrowJero braga - Last Filed: 08/23/18 12:48> Provider - Provider Date of Admission: 08/22/18 11:52 Attending physician: Bhaskar Bee MD Consults: 08/22/18 11:23 Consult [Physician Consult] Stat Comment: Consulting Provider: Riaz Paniagua Consulting Physician: Riaz Paniagua Reason for Consult: kidney stone Additional Comments: WBC 17, UTI positive, Creatitin 1.0 Time Spent in preparation of Discharge (in minutes): 60 Hospital Course - Lab Results Lab Results: Micro Results 08/22/18 10:00 Blood Blood Culture - Preliminary NO GROWTH AFTER 24 HOURS 08/22/18 09:54 Blood Blood Culture - Preliminary NO GROWTH AFTER 24 HOURS 08/22/18 09:15 Urine,Clean Catch Urine Culture - Final Gram Negative Danny Most Recent Lab Values WBC 10.8 10^3/uL (4.5-11.0) D 08/23/18 07:30 RBC 3.69 10^6/uL (3.5-6.1) 08/23/18 07:30 Hgb 8.3 g/dL (12.0-16.0) L 08/23/18 07:30 Hct 27.8 % (36.0-48.0) L 08/23/18 07:30 MCV 75.3 fl (80.0-105.0) L 08/23/18 07:30 MCH 22.5 pg (25.0-35.0) L 08/23/18 07:30 MCHC 29.9 g/dl (31.0-37.0) L 08/23/18 07:30 RDW 17.1 % (11.5-14.5) H 08/23/18 07:30 Plt Count 380 10^3/uL (120.0-450.0) 08/23/18 07:30 MPV 8.5 fl (7.0-11.0) 08/23/18 07:30 Neut % (Auto) 74.9 % (50.0-68.0) H 08/23/18 07:30 Lymph % (Auto) 15.7 % (22.0-35.0) L 08/23/18 07:30 [place] % (Auto) 6.5 % (1.0-6.0) H 08/23/18 07:30 Eos % (Auto) 2.8 % (1.5-5.0) 08/23/18 07:30 Baso % (Auto) 0.1 % (0.0-3.0) 08/23/18 07:30 Lymph # (Auto) 1.7 (1.2-3.4) 08/23/18 07:30 [place] # (Auto) 0.7 (0.1-0.6) H 08/23/18 07:30 Eos # (Auto) 0.3 (0.0-0.7) 08/23/18 07:30 Baso # (Auto) 0.01 K/mm3 (0.0-2.0) 08/23/18 07:30 Absolute Neuts (auto) 8.09 (1.4-6.5) H 08/23/18 07:30 pO2 57 mm/Hg (30-55) H 08/22/18 10:00 VBG pH 7.43 (7.32-7.43) 08/22/18 10:00 VBG pCO2 36.0 (40-60) L 08/22/18 10:00 VBG HCO3 23.9 mmol/l (21-28) 08/22/18 10:00 VBG Total CO2 25.0 mmol.L (22-28) 08/22/18 10:00 VBG O2 Sat (Calc) 94.8 % (40-65) H 08/22/18 10:00 VBG Base Excess -0.1 mmol/L (0.0-2.0) L 08/22/18 10:00 VBG Potassium 3.8 mmol/L (3.6-5.2) 08/22/18 10:00 Sodium 138.0 mmol/L (132-148) 08/22/18 10:00 Chloride 107.0 mmol/L (98-107) 08/22/18 10:00 Glucose 111 mg/dl (65-105) H 08/22/18 10:00 Lactate 0.8 mmol/L (0.7-2.1) 08/22/18 10:00 FiO2 21.0 % 08/22/18 10:00 Sodium 140 mmol/L (132-148) 08/23/18 07:30 Potassium 3.6 mmol/L (3.6-5.0) 08/23/18 07:30 Chloride 108 mmol/L (98-107) H 08/23/18 07:30 Carbon Dioxide 25 mmol/L (21-33) 08/23/18 07:30 Anion Gap 11 (10-20) 08/23/18 07:30 BUN 12 mg/dL (7-21) 08/23/18 07:30 Creatinine 1.0 mg/dl (0.7-1.2) 08/23/18 07:30 Est GFR ( Amer) > 60 08/23/18 07:30 Est GFR (Non-Af Amer) > 60 08/23/18 07:30 Random Glucose 89 mg/dL (70-110) 08/23/18 07:30 Calcium 7.9 mg/dL (8.4-10.5) L 08/23/18 07:30 Phosphorus 3.0 mg/dL (2.5-4.5) 08/23/18 07:30 Magnesium 1.7 mg/dL (1.7-2.2) 08/23/18 07:30 Iron 11 ug/dL (45-180) L 08/22/18 13:00 TIBC 419 ug/dL (265-497) 08/22/18 13:00 % Saturation 3 % (20-55) L 08/22/18 13:00 Ferritin 8.2 ng/mL 08/22/18 13:00 Total Bilirubin 0.6 mg/dL (0.2-1.3) 08/23/18 07:30 AST 17 U/L (14-36) 08/23/18 07:30 ALT 11 U/L (7-56) 08/23/18 07:30 Alkaline Phosphatase 84 U/L (38-126) 08/23/18 07:30 Total Protein 6.8 g/dL (5.8-8.3) 08/23/18 07:30 Albumin 3.3 g/dL (3.0-4.8) 08/23/18 07:30 Globulin 3.5 gm/dL 08/23/18 07:30 Albumin/Globulin Ratio 0.9 (1.1-1.8) L 08/23/18 07:30 Folate 9.8 ng/mL 08/22/18 13:00 Venous Blood Potassium 3.8 mmol/L (3.6-5.2) 08/22/18 10:00 Urine Color Light yellow (YELLOW) 08/22/18 09:15 Urine Appearance Slight-cloudy (CLEAR) 08/22/18 09:15 Urine pH 7.0 (4.7-8.0) 08/22/18 09:15 Ur Specific [place] 1.015 (1.005-1.035) 08/22/18 09:15 Urine Protein 30 mg/dL (<30 mg/dL) H 08/22/18 09:15 Urine Glucose (UA) Negative mg/dL (NEGATIVE) 08/22/18 09:15 Urine Ketones Negative mg/dL (NEGATIVE) 08/22/18 09:15 Urine Blood Small (NEGATIVE) H 08/22/18 09:15 Urine Nitrate Negative (NEGATIVE) 08/22/18 09:15 Urine Bilirubin Negative (NEGATIVE) 08/22/18 09:15 Urine Urobilinogen 0.2 E.U./dL (<1 E.U./dL) 08/22/18 09:15 Ur Leukocyte Esterase Large Salomon/uL (NEGATIVE) H 08/22/18 09:15 Urine RBC 10 - 15 /hpf (0-2) H 08/22/18 09:15 Urine WBC Tntc /hpf (0-6) H 08/22/18 09:15 Ur Epithelial Cells 4 - 5 /hpf (0-5) 08/22/18 09:15 Urine Bacteria Many /hpf (NONE) 08/22/18 09:15 - Hospital Course Hospital Course: Jero Watson, PGY-1, Internal Medicine Discharge Summary for Dr. Bee 37 year old female with past medical history of nephrolithiasis and tobacco abuse presented for sharp right lower quadrant abdominal pain radiating to the back. Patient reported no exacerbating factors as she was watching TV when symptoms started. Remitting factors included toradol, IV fluids, and antibiotics upon presentation to the emergency department. She reported one episode of NBNB vomiting yesterday with nausea. This morning, she reported resolution of her pain and no nausea upon evaluation in the emergency department. She had this pain 2 months ago, was evaluated, and found to have nephrolithiasis at that time but left against medical advice. She did not have this pain until prior to admission. Upon admission, abdominal and pelvis CT was performed which showed obstructive 6x6x6 mm distal right ureteral calculus causing moderate right hydroureteronephrosis. Patient had leukocytosis on admission which was likely reactive and has now resolved. Patient has been afebrile throughout the admission. Patient was started on normal saline at 100cc/hr for adequate hydration to assist in passing stone and toradol as needed for pain. Ceftriaxone was also started to cover for possible pyelonephritis. Dr. Paniagua, Urology, was consulted who performed cystoscopy, right retrograde pyelogram, and inserted right ureteral stent. Patient was found to have overt hydronephrosis on the right side. After stent was placed, large amount of purulent fluid passed through the stent. Patient tolerated the procedure well. Today, patient continues to be afebrile, no longer has a leukocytosis, and has no pain at bedside. Patient denies having passed stone through urine. Patient was also found to have iron deficiency anemia with %transferrin saturation of 3. Ferrous sulfate was started as a result. Patient reported smoking 3 cigarettes daily. Patient was counseled on dangers of continued tobacco use. Patient was found to be stable and ready for discharge. Patient was told to follow up with Dr. Amaya in the office in a week for ureteroscopy for removal of stent. Patient was told to follow up with primary care physician in 3-5 days. Patient was told to take ciprofloaxicin for 7 days. Patient was told to take the rest of her home medications. Patient was told to keep herself hydrated. Patient was told to return to the emergency department if she had any new or concerning symptoms. Discharge Diagnoses Obstructive nephrolithiasis Microcytic Anemia Tobacco Abuse Disorder - Date & Time of H&P Date of H&P: 08/22/18 Time of H&P: 13:16 Discharge Exam - Head Exam Head Exam: ATRAUMATIC, NORMAL INSPECTION, NORMOCEPHALIC - Eye Exam Eye Exam: EOMI, PERRL - ENT Exam ENT Exam: Mucous Membranes Moist - Respiratory Exam Respiratory Exam: Clear to PA & Lateral, NORMAL BREATHING PATTERN - Cardiovascular Exam Cardiovascular Exam: REGULAR RHYTHM, RRR, +S1, +S2. absent: Clicks, Gallop, Rubs - GI/Abdominal Exam GI & Abdominal Exam: Normal Bowel Sounds, Soft. absent: Distended, Firm, Guarding, Tenderness - Extremities Exam Extremities exam: full ROM, normal inspection - Back Exam Back exam: absent: CVA tenderness (L), CVA tenderness (R) - Neurological Exam Neurological exam: Alert, CN II-XII Intact, Oriented x3 - Skin Skin Exam: Dry, Intact, Normal Color Discharge Plan - Discharge Medications Prescriptions: Ciprofloxacin [Cipro] 500 mg PO DAILY 7 Days #7 tab Ferrous Sulfate [Feosol] 324 mg PO TID 30 Days #90 ect - Follow Up Plan Condition: GUARDED Disposition: HOME/ ROUTINE Instructions: Kidney Infection, Cystoscopy, Acid Reflux (Gastroesophageal Reflux Disease), Adult (DC) Additional Instructions: 1. Please follow up with Dr. Amaya in the office in a week for ureteroscopy for removal of stent. 2. Please follow up with your primary care doctor in 3-5 days 3. Take the antibiotic ( ciprofloxacin) for 7 days 4. Resume the rest of your home medications 5. Keep yourself hydrated 6. Please return if the symptoms returns or worsens. Referrals: [facility] [Provider Group] Abundio Amaya MD [Staff Provider] - <Bhaskar Bee - Last Filed: 08/24/18 14:31> Provider - Provider Date of Admission: 08/22/18 11:52 Attending physician: Bhaskar Bee MD Consults: 08/22/18 11:23 Consult [Physician Consult] Stat Comment: Consulting Provider: Riaz Paniagua Consulting Physician: Riaz Paniagua Reason for Consult: kidney stone Additional Comments: WBC 17, UTI positive, Creatitin 1.0 Hospital Course - Lab Results Lab Results: Micro Results 08/22/18 10:00 Blood Blood Culture - Preliminary NO GROWTH AFTER 48 HOURS 08/22/18 09:54 Blood Blood Culture - Preliminary NO GROWTH AFTER 48 HOURS 08/22/18 09:15 Urine,Clean Catch Urine Culture - Final Gram Negative Danny Most Recent Lab Values WBC 10.8 10^3/uL (4.5-11.0) D 08/23/18 07:30 RBC 3.69 10^6/uL (3.5-6.1) 08/23/18 07:30 Hgb 8.3 g/dL (12.0-16.0) L 08/23/18 07:30 Hct 27.8 % (36.0-48.0) L 08/23/18 07:30 MCV 75.3 fl (80.0-105.0) L 08/23/18 07:30 MCH 22.5 pg (25.0-35.0) L 08/23/18 07: MCHC 29.9 g/dl (31.0-37.0) L 08/23/18 07:30 RDW 17.1 % (11.5-14.5) H 08/23/18 07:30 Plt Count 380 10^3/uL (120.0-450.0) 08/23/18 07:30 MPV 8.5 fl (7.0-11.0) 08/23/18 07: Neut % (Auto) 74.9 % (50.0-68.0) H 08/23/18 07: Lymph % (Auto) 15.7 % (22.0-35.0) L 08/23/18 07:30 [place] % (Auto) 6.5 % (1.0-6.0) H 08/23/18 07:30 Eos % (Auto) 2.8 % (1.5-5.0) 08/23/18 07:30 Baso % (Auto) 0.1 % (0.0-3.0) 08/23/18 07:30 Lymph # (Auto) 1.7 (1.2-3.4) 08/23/18 07:30 [place] # (Auto) 0.7 (0.1-0.6) H 08/23/18 07:30 Eos # (Auto) 0.3 (0.0-0.7) 08/23/18 07: Baso # (Auto) 0.01 K/mm3 (0.0-2.0) 08/23/18 07:30 Absolute Neuts (auto) 8.09 (1.4-6.5) H 08/23/18 07:30 pO2 57 mm/Hg (30-55) H 08/22/18 10:00 VBG pH 7.43 (7.32-7.43) 08/22/18 10:00 VBG pCO2 36.0 (40-60) L 08/22/18 10:00 VBG HCO3 23.9 mmol/l (21-28) 08/22/18 10:00 VBG Total CO2 25.0 mmol.L (22-28) 08/22/18 10:00 VBG O2 Sat (Calc) 94.8 % (40-65) H 08/22/18 10:00 VBG Base Excess -0.1 mmol/L (0.0-2.0) L 08/22/18 10:00 VBG Potassium 3.8 mmol/L (3.6-5.2) 08/22/18 10:00 Sodium 138.0 mmol/L (132-148) 08/22/18 10:00 Chloride 107.0 mmol/L (98-107) 08/22/18 10:00 Glucose 111 mg/dl (65-105) H 08/22/18 10:00 Lactate 0.8 mmol/L (0.7-2.1) 08/22/18 10:00 FiO2 21.0 % 08/22/18 10:00 Sodium 140 mmol/L (132-148) 08/23/18 07:30 Potassium 3.6 mmol/L (3.6-5.0) 08/23/18 07:30 Chloride 108 mmol/L (98-107) H 08/23/18 07:30 Carbon Dioxide 25 mmol/L (21-33) 08/23/18 07:30 Anion Gap 11 (10-20) 08/23/18 07:30 BUN 12 mg/dL (7-21) 08/23/18 07:30 Creatinine 1.0 mg/dl (0.7-1.2) 08/23/18 07:30 Est GFR ( Amer) > 60 08/23/18 07:30 Est GFR (Non-Af Amer) > 60 08/23/18 07:30 Random Glucose 89 mg/dL (70-110) 08/23/18 07:30 Calcium 7.9 mg/dL (8.4-10.5) L 08/23/18 07:30 Phosphorus 3.0 mg/dL (2.5-4.5) 08/23/18 07:30 Magnesium 1.7 mg/dL (1.7-2.2) 08/23/18 07:30 Iron 11 ug/dL (45-180) L 08/22/18 13:00 TIBC 419 ug/dL (265-497) 08/22/18 13:00 % Saturation 3 % (20-55) L 08/22/18 13:00 Ferritin 8.2 ng/mL 08/22/18 13:00 Total Bilirubin 0.6 mg/dL (0.2-1.3) 08/23/18 07:30 AST 17 U/L (14-36) 08/23/18 07:30 ALT 11 U/L (7-56) 08/23/18 07:30 Alkaline Phosphatase 84 U/L (38-126) 08/23/18 07:30 Total Protein 6.8 g/dL (5.8-8.3) 08/23/18 07:30 Albumin 3.3 g/dL (3.0-4.8) 08/23/18 07:30 Globulin 3.5 gm/dL 08/23/18 07:30 Albumin/Globulin Ratio 0.9 (1.1-1.8) L 08/23/18 07:30 Folate 9.8 ng/mL 08/22/18 13:00 Venous Blood Potassium 3.8 mmol/L (3.6-5.2) 08/22/18 10:00 Urine Color Light yellow (YELLOW) 08/22/18 09:15 Urine Appearance Slight-cloudy (CLEAR) 08/22/18 09:15 Urine pH 7.0 (4.7-8.0) 08/22/18 09:15 Ur Specific [place] 1.015 (1.005-1.035) 08/22/18 09:15 Urine Protein 30 mg/dL (<30 mg/dL) H 08/22/18 09:15 Urine Glucose (UA) Negative mg/dL (NEGATIVE) 08/22/18 09:15 Urine Ketones Negative mg/dL (NEGATIVE) 08/22/18 09:15 Urine Blood Small (NEGATIVE) H 08/22/18 09:15 Urine Nitrate Negative (NEGATIVE) 08/22/18 09:15 Urine Bilirubin Negative (NEGATIVE) 08/22/18 09:15 Urine Urobilinogen 0.2 E.U./dL (<1 E.U./dL) 08/22/18 09:15 Ur Leukocyte Esterase Large [place]/uL (NEGATIVE) H 08/22/18 09:15 Urine RBC 10 - 15 /hpf (0-2) H 08/22/18 09:15 Urine WBC Tntc /hpf (0-6) H 08/22/18 09:15 Ur Epithelial Cells 4 - 5 /hpf (0-5) 08/22/18 09:15 Urine Bacteria Many /hpf (NONE) 08/22/18 09:15 Attending/Attestation - Attestation I have personally seen and examined this patient.: Yes I have fully participated in the care of the patient.: Yes I have reviewed all pertinent clinical information, including history, physical exam and plan: Yes Notes (Text): 08/24/18 14:27 Attending note; Patient seen and examined with resident. alert and awake. not in distress. Patient is a 37-year-old female with past medical history significant for dialysis and tobacco abuse presented to the emergency room for right sided back/abdominal pain. 1. abdominal pain: Obstructing right ureteral calculus. Moderate right hydroureteronephrosis. Right CVA tenderness. CT abdomen and pelvis per radiologist showed obstructive 6 x 6 x 6 mm distal right ureteral calculus causing moderate right hydroureteronephrosis; nonobstructive 5 mm left lower pole calculus. s/p ureteral stent placement. Urology recommendations appreciated. currently pain free. tolerating diet. No hematuria. 2. UTI. Started on Rocephin. Urine culture pending. we will discharge home with po cipro. 3. Tobacco abuse. Counseled on cessation. Case was discussed in detail with the patient regarding her diagnosis, test results, and treatment plan. All questions answered. discharge home today. follow up with urology Dr. Amaya in 1 week for stent removal. 08/24/18 14:31
[2018-08-24] MEDS ORDERED: Pantoprazole 40 mg EC Tab PO SCH (06:00)
== END 2018-08-23 13:38 | disposition home or self-care (01) | DRG 321 ==
LOC: ED 08:14 → ERH 11:52 → 5RNO 12:52
PROVIDERS: ADMIT Internal Medicine; ATTEND Internal Medicine
PROC: BT1D1ZZ Fluoroscopy of Right Kidney, Ureter and Bladder using Low Osmolar Contrast (ICD-10-PCS; 2018-08-22)
PROC: 0T768DZ Dilation of Right Ureter with Intraluminal Device, Via Natural or Artificial Opening Endoscopic (ICD-10-PCS; principal; 2018-08-22 15:00)
DX: N13.6 Pyonephrosis (principal); Z87.442 Personal history of urinary calculi; N28.82 Megaloureter; D50.9 Iron deficiency anemia, unspecified; F17.210 Nicotine dependence, cigarettes, uncomplicated; Z98.891 History of uterine scar from previous surgery